=== PATIENT | male | born 1975 | race Caucasian/White ===

== ENCOUNTER 2023-12-12 01:09 | Day surgery (SDC) | payer BC, SELFPAY ==
[2023-11-18 12:49] VITALS: BMI 29.6
[2023-12-12 09:17] VITALS: BP 161/82; PULSE 59; RESP 16; TEMP 36.4; O2SAT 99; BMI 30.4
[2023-12-12] MEDS: LACTATED RINGERS 1,000 ML 150 ML IV CONT (09:29)
--- NOTE | 2023-12-12 10:00 | P.PNAN_ITS ---
Anes - Initial Pre Proc Eval Procedure: Operation Date: 12/12/23 10:30 Proposed Procedures p Colonoscopy - Marco Yu MD Date/Time: 12/12/23 10:00 Surgeon: Marco Yu MD Pre Op Diagnosis: Fam. Hx. Colon CA Patient Data Age: 48 Gender: M Height: 1.75 m Weight: 93.5 kg Last Vital Signs Temp 97.6 F 12/12/23 09:17 Pulse 59 L 12/12/23 09:17 Resp 16 12/12/23 09:17 BP 161/82 H 12/12/23 09:17 Pulse Ox 99 12/12/23 09:17 O2 Del Method Room Air 12/12/23 09:17 Allergies Allergy/AdvReac Type Severity Reaction Status Date / Time No Known Allergies Allergy Verified 12/12/23 09:16 Home Medications Medication Instructions Recorded Confirmed Type No Home Medications 06/02/21 12/12/23 History Patient hx anesthesia problems: none Family hx anesthesia problems: none Results Review: All pre-operative results and documents have been reviewed as part of the pre- operative evaluation. [facility] Surgical History Surgical History Hx of vasectomy Family History Family History Grandparent Carcinoma of colon Social History Social History Smoking status: Never smoker Second hand tobacco smoke exposure: No Alcohol intake: never Substance use: never Substance use type: does not use Living arrangements: with family Occupation/Education: occupation Gender identity (if verbalized by the patient): Male Sexual Orientation (if Verbalized by the Patient): Straight or Heterosexual Anes - Eval Final PreProcedure Day of Procedure 12/12/23 10:00 Patient weight: overweight Heart: regular rate and rhythm Lungs: clear to auscultation Airway: Mallampati scale class II Neurological: alert and oriented Last oral intake: >/= 8 hours ASA classification: I Emergent: no Anesthetic plan: proceed Anesthesia type and monitoring: general GIVS and standard monitoring Results Review: All pre-operative results and documents have been reviewed as part of the pre- operative evaluation. Hyperlipidemia per hx but pt denies. Pt very physically active w workouts, cardio, no cp or sob. Informed Consent: The patient's anesthetic plan and its attendant risks and benefits were discussed with the patient/family/POA. Questions were solicited and answers provided to the satisfaction of the patient/family/POA.
--- NOTE | 2023-12-12 10:47 | PM.HPGS ---
History of Present Illness History of Present Illness Consent: Risks, benefits, and alternatives have been discussed and questions answered. Patient agrees to proceed with procedure. Chief complaint: Fam. Hx. Colon CA Narrative: Nikhil Chi is a 48 year old male here for first screening colonoscopy, grandparent had colon cancer Review of Systems Review of Systems: All systems reviewed & are unremarkable except as noted in HPI and below PMFSH Past Medical History Medical History (Updated 12/12/23 @ 10:48 by Marco Yu MD) Colon cancer screening Surgical History Surgical History Hx of vasectomy Family History Family History Grandparent Carcinoma of colon Social History Social History Smoking status: Never smoker Second hand tobacco smoke exposure: No Alcohol intake: never Substance use: never Substance use type: does not use Living arrangements: with family Occupation/Education: occupation Gender identity (if verbalized by the patient): Male Sexual Orientation (if Verbalized by the Patient): Straight or Heterosexual Meds Home Medications and Allergies Home Medications Medication Instructions Recorded Confirmed Type No Home Medications 06/02/21 12/12/23 History Allergies Allergy/AdvReac Type Severity Reaction Status Date / Time No Known Allergies Allergy Verified 12/12/23 09:16 Vital Signs Vital Signs - 24 hr 12/12/23 09:17 Temperature 97.6 F Pulse Rate 59 L Respiratory Rate 16 Blood Pressure 161/82 H Pulse Oximetry 99 Oxygen Delivery Room Air Exam Const: General: comfortable and no acute distress HENMT: Face/Nose/Sinus: Normal nares present Eyes: General: appearance normal, both eyes and all related structures Neck: Neck: no JVD Resp: Auscultation: clear to auscultation bilaterally Cardio: Rate: regular rate Rhythm: regular rhythm GI: Inspection: non-distended GI Palp: Yes Soft to palpation Skin: General skin exam: normal color Neuro: General: gait normal Speech: normal speech Extrem: General: normal to inspection Psych: Mental Status: mental status grossly normal Assessment and Plan Assessment and plan (1) Colon cancer screening: Code(s): Z12.11 - Encounter for screening for malignant neoplasm of colon Status: Acute Assessment and Plan: colonoscopy
[2023-12-12 11:04] VITALS: BP 112/64; PULSE 59; RESP 17; O2SAT 99
[2023-12-12 11:14] VITALS: BP 126/73; PULSE 51; RESP 17; O2SAT 98
[2023-12-12 11:27] VITALS: BP 127/80; PULSE 52; RESP 15; O2SAT 100
== END 2023-12-12 11:36 | disposition home or self-care (01) ==
PROVIDERS: PCP Family Medicine; Referring Provider Physician Assistant; Visit Provider Internal Medicine Gastroenterology
PROC: 0DJD8ZZ Inspection of Lower Intestinal Tract, Via Natural or Artificial Opening Endoscopic (ICD-10-PCS; CPT 45378; principal; 2023-12-12 10:30)
DX: Z12.11 Encounter for screening for malignant neoplasm of colon (principal); K64.8 Other hemorrhoids; K57.30 Diverticulosis of large intestine without perforation or abscess without bleeding; Z98.890 Other specified postprocedural states; Z80.0 Family history of malignant neoplasm of digestive organs
CPT/HCPCS: 45378; J2704; J7120